=== PATIENT | female | born 1980 | race Caucasian/White ===

== ENCOUNTER 2017-11-10 18:07 | Emergency (ER) | payer MEDICAID ==
[2017-11-10] MEDS: KETOROLAC 60 MG INJ IM (21:00)
[2017-11-10] MEDS: HYDROCODONE/APAP (5/325) TAB PO (21:00)
== END 2017-11-10 21:40 | disposition home or self-care (01) ==
LOC: FTE 18:07
DX: R05 Cough (principal)
CPT/HCPCS: 96372; 99284-25